=== PATIENT | male | born 1945 | race Caucasian/White ===

== ENCOUNTER 2020-01-29 09:35 | Day surgery (SDC) | payer MEDICARE, BC ==
[2020-01-28 11:45] LABS: BASOPHILS % (AUTO) 0.4 % (0-1); EOSINOPHILS # (AUTO) 0.2 X10'3 (0-0.9); HEMATOCRIT 44.1 % (42.0-52.0); HEMOGLOBIN 14.7 g/dl (14.0-17.9); LYMPHOCYTES # (AUTO) 1.4 X10'3 (1.1-4.8); LYMPHOCYTES % (AUTO) 14.2 % (21-51); MEAN CORPUSCULAR HEMOGLOBIN 31.9 PG (27.0-31.0); MEAN CORPUSCULAR HGB CONC 33.4 g/dL (33.0-36.5); MEAN CORPUSCULAR VOLUME 95.5 FL (78-98); MEAN PLATELET VOLUME 8.7 FL (7.4-10.4); MONOCYTES # (AUTO) 0.7 X10'3 (0-0.9); NEUTROPHILS # (AUTO) 7.5 X10'3 (1.8-7.7); NEUTROPHILS % (AUTO) 76.4 % (42-75); PLATELET COUNT 168 X10'3 (140-440); RED BLOOD COUNT 4.62 X10'6 (4.70-6.10); RED CELL DISTRIBUTION WIDTH 14.5 % (11.5-14.5); WHITE BLOOD COUNT 9.9 X10'3 (4.5-11.0)
[2020-01-28 11:57] LABS: ALBUMIN 3.6 G/DL (3.4-5.0); ANION GAP 8 (8-16); BLOOD UREA NITROGEN 24 MG/DL (7-18); BUN/CREATININE RATIO 24.5 (5.4-32.0); CALCIUM 9.1 MG/DL (8.5-10.1); CHLORIDE 106 MMOL/L (99-107); CREATININE 0.98 MG/DL (0.60-1.10); GLUCOSE 111 MG/DL (70-104); SODIUM 141 MMOL/L (135-145); TOTAL CARBON DIOXIDE 27.5 MMOL/L (24-32); eGFR 75 ML/MIN
[2020-01-28 11:59] LABS: PARTIAL THROMBOPLASTIN TIME 25 SECONDS (22-32)
[~2020-01-29] VITALS: Ht 172.7 cm; Wt 103.5 kg
[2020-01-29] VITALS (10 sets, daily range): BP systolic 117–138; BP diastolic 59–85
[2020-01-29] MEDS ORDERED: normal saline 1000ml 1,000 ML IV SCH (10:20)
[2020-01-29] MEDS ORDERED: CLINDAMYCIN/D5W 900mg/50ml 50 ML IV ONE (10:25)
[2020-01-29] MEDS ORDERED: QUET25TA PO (10:42)
[2020-01-29] MEDS ORDERED: AMLO10TA48 PO (10:42)
[2020-01-29] MEDS ORDERED: BUSP5TAB3 PO (10:42)
[2020-01-29] MEDS ORDERED: CARB1TAB23 PO (10:42)
[2020-01-29] MEDS ORDERED: ESCI20TA45 PO (10:42)
[2020-01-29] MEDS ORDERED: ATOR20TA66 PO (10:42)
[2020-01-29] MEDS ORDERED: RASA0.5T PO (10:42)
[2020-01-29] MEDS ORDERED: FLO0.4C PO (10:42)
[2020-01-29] MEDS ORDERED: ACET-890 PO (10:42)
[2020-01-29] MEDS ORDERED: GABA600T13 PO (10:42)
[2020-01-29] MEDS ORDERED: ASPI-1265 PO (10:42)
[2020-01-29] MEDS ORDERED: CARB-17 PO (10:42)
[2020-01-29] MEDS ORDERED: FURO-150 PO (10:42)
[2020-01-29] MEDS ORDERED: CHOL100046 PO (10:42)
[2020-01-29] MEDS ORDERED: ceFAZolin 2gm in dextrose, iso 50 ML IV ONE (13:00)
[2020-01-29] MEDS ORDERED: midazolam 2 mg/2 ml injection ONE ×2 (13:00→14:08)
[2020-01-29] MEDS ORDERED: fentaNYL/PF 50MCG/1 ML 2ML syringe ONE (13:00)
[2020-01-29] MEDS ORDERED: ceFAZolin 1000mg inj ONE (13:01)
[2020-01-29] MEDS ORDERED: LIDOcaine 1% W/epiNEPHrine 1:100,000 20ml vial ONE ×2 (13:01→13:52)
[2020-01-29] MEDS ORDERED: verapamil 2.5 mg/ml inj IV ONE (14:32)
[2020-01-29] MEDS ORDERED: HYDROcodone/acetaminophen 5mg/325mg tablet PO PRN (15:25)
[2020-01-29] MEDS ORDERED: HYDROcodone/acetaminophen 10/325mg tab PO PRN (15:25)
[2020-01-29] MEDS ORDERED: normal saline 1000ml 1,000 ML IV ONE (15:30)
== END 2020-01-29 20:05 ==
LOC: SSTAY O 09:35
PROVIDERS: ATTEND Internal Medicine Cardiovascular Disease
DX: I49.5 Sick sinus syndrome (principal); I25.10 Atherosclerotic heart disease of native coronary artery without angina pectoris; I50.9 Heart failure, unspecified; E11.9 Type 2 diabetes mellitus without complications; G47.33 Obstructive sleep apnea (adult) (pediatric); G20 Parkinson's disease; Z95.5 Presence of coronary angioplasty implant and graft; Z79.01 Long term (current) use of anticoagulants; Z79.899 Other long term (current) drug therapy
CPT/HCPCS: 33208; 36415; 71045; 80048; 82948; 85025; 85610; 85730; 93005; 99152; 99153; C1785; C1894; C1898; J0690; J2250; J3010; J3370; J7030; A4565; A4620; A6449